=== PATIENT | female | born 1945 | race Caucasian/White ===

== ENCOUNTER 2017-04-15 14:18 | Outpatient (CLI) | payer MEDICARE, OTHER ==
[2015-07-15 20:10] VITALS: BP 190/90
[2017-04-15 15:45] LABS: eGFR (African) > 60; eGFR (Non-African) > 60
== END 2017-04-15 14:20 ==
LOC: LAB 14:18
PROVIDERS: ATTEND Family Medicine
DX: I10 Essential (primary) hypertension (principal); R41.3 Other amnesia
CPT/HCPCS: 36415; 80053; 80061; 84443

== ENCOUNTER 2019-02-08 11:30 | Emergency (ER) | payer MEDICARE, OTHER ==
--- NOTE | 2019-02-08 11:34 | ED Physician Documentation ---
Lower Extremity Problem - HISTORIAN Historian: patient - HPI Stated Complaint: left foot swelling/pain Chief Complaint: Lower Extremity Problem Additional Information: Patient presents to ED with a 2 day history of left foot/ankle swelling with associated redness. Patient states that today the pain is so intense she is unable to bear weight. She has a heel spur on the same foot and sees Dr. Ordoñez. She has no other complaints. Location of Injury: L foot, L ankle Onset: days ago (2) Timing: still present, persistent since Duration: constant Where: home Severity: moderate Quality: pain, swelling, tenderness Exacerbated By: walking Relieved By: rest Associated Symptoms: denies: chest pain, shortness of breath - ROS CONST: denies: fever MS/SKIN/LYMPH: denies: leg swelling CVS/RESP: denies: chest pain, shortness of breath GI/: denies: vomiting, nausea NERUO/PSYCH: denies: headache - PAST HX Past History: none PE Risk Factors: hypertension Other History: CHF Surgeries/Procedures: none Allergies/Adverse Reactions: Allergies Allergy/AdvReac Type Severity Reaction Status Date / Time Cbnhgwa-Geh-Stk Reductase AdvReac Unknown Blister Verified 02/08/19 11:35 Inhibitor Home Medications: Ambulatory Orders Medication Instructions Recorded Omeprazole 40 mg PO BID 07/15/15 Amoxicillin/Potassium Clav 1 each PO BID #14 tablet 02/08/19 [Augmentin 875-125 Tablet] - SOCIAL HX Smoking History: non-smoker Alcohol Use: none Drug Use: none - FAMILY HX Family History: none - VITAL SIGNS Vital Signs: Vital Signs Temp Pulse Resp BP Pulse Ox 97.9 F 89 20 173/78 96 02/08/19 11:36 02/08/19 11:36 02/08/19 11:36 02/08/19 11:36 02/08/19 11:36 - REVIEWED ASSESSMENTS Nursing Assessment Reviewed: Yes Vitals Reviewed: Yes ED Results Lab/Radiology - Lab Results Lab Results: Lab Results 02/08/19 02/08/19 02/08/19 12:00 12:00 12:00 WBC 9.90 K/ul K/ul (4.00-12.00) RBC 4.40 M/ul M/ul (3.90-5.20) Hgb 12.8 g/dL g/dL (11.5-16.0) Hct 37.9 % % (34.5-46.5) MCV 86.0 fl fl (80.0-100.0) MCH 29.1 pg pg (28.0-34.0) MCHC 33.7 g/dL g/dL (30.0-36.0) RDW 14.1 % % (11.3-14.3) Plt Count 219 K/mm3 K/mm3 (130-400) Neut % (Auto) 72.4 % % (39.0-79.0) Lymph % (Auto) 16.1 % % (16.0-50.0) [place] % (Auto) 9.4 % % (0.0-11.0) Eos % (Auto) 1.6 % % (0.0-6.8) Baso % (Auto) 0.5 % % (0.0-1.5) Neut # (Auto) 7.2 # k/uL # k/uL (1.4-7.7) Lymph # (Auto) 1.6 # k/uL # k/uL (0.6-4.0) [place] # (Auto) 0.9 # k/uL # k/uL (0.0-0.9) Eos # (Auto) 0.2 # k/uL # k/uL (0.0-0.6) Baso # (Auto) 0.1 # k/uL # k/uL (0.0-0.5) Sodium 140 mmol/L mmol/L (137-145) Potassium 4.9 mmol/L mmol/L (3.5-5.1) Chloride 101 mmol/L mmol/L (98-107) Carbon Dioxide 26 mmol/L mmol/L (22-30) Anion Gap 17.9 BUN 23 mg/dL H mg/dL (7-17) Creatinine 0.72 mg/dL mg/dL (0.52-1.04) Estimated Creat Clear 113 Est GFR ( Amer) > 60 (60 - ) Est GFR (Non-Af Amer) > 60 (60 - ) Glucose 150 mg/dL H mg/dL (74-106) Uric Acid 5.0 mg/dL mg/dL (2.5-6.2) Calcium 9.4 mg/dL mg/dL (8.4-10.2) Total Bilirubin 1.1 mg/dL mg/dL (0.2-1.3) AST 46 U/L U/L (15-46) ALT 13 U/L U/L (13-69) Alkaline Phosphatase 90 U/L U/L (38-126) Total Protein 8.1 g/dL g/dL (6.3-8.2) Albumin 4.5 g/dL g/dL (3.5-5.0) - Radiology Radiology Impressions: Report Submission Date: Feb 08, 2019 12:10:09 PM CDT Patient Study Name: RACHAEL CRUZ Date: Feb 08, 2019 11:34:51 AM CDT Modality Type: DX Gender: F Description: ANKLE 3 VIEWS OR MORE : 41 Institution: [facility] Physician: SHAYY AGUILAR Exam: Left ankle. History: Pain. AP, lateral and mortise view of the left ankle are submitted. The examination is compared to a study of the calcaneus performed on January 20 2019. No signs of acute fracture or dislocation is identified. Ankle mortise is adequately maintained. Soft tissue swelling about the ankle is noted. Spurs off the plantar and posterior surfaces of the calcaneus are identified. Impression: Soft tissue swelling. Heel spurs. Electronically signed on Feb 08, 2019 12:10:09 PM CDT by: Juan C Diggs Report Submission Date: Feb 08, 2019 12:11:49 PM CDT Patient Study Name: RACHAEL CRUZ Date: Feb 08, 2019 11:34:51 AM CDT Modality Type: DX Gender: F Description: FOOT 3 VIEWS OR MORE : 41 Institution: [facility] Physician: SHAYY AGUILAR Exam: Left foot. History: Pain. AP, lateral and oblique view of the left foot are submitted and compared to a study of the calcaneus performed on January 20, 2019. 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 No signs of acute fracture or dislocation is seen. No bony erosions are seen. Spurs off the plantar and posterior surfaces of the calcaneus are noted. No other soft tissue abnormalities are identified. Impression: Heel spurs. Electronically signed on Feb 08, 2019 12:11:49 PM CDT by: Juan C Diggs - Orders Orders: ED Orders Category Date Time Status Place IV Lock 1T Care 02/08/19 11:41 Active ANKLE 3 VIEWS OR MORE [RAD] Stat Exams 02/08/19 Taken FOOT 3 VIEWS OR MORE [RAD] Stat Exams 02/08/19 Taken CBC/PLATELET/DIFF Routine Lab 02/08/19 12:00 Completed CMP Routine Lab 02/08/19 12:00 Completed URIC ACID Stat Lab 02/08/19 12:00 Completed methylPREDNISolone SOD SUCC [SOLU-Medrol] Med 02/08/19 12:26 Once 125 mg IVP NOW ONE Lower Extremity Problem - EXAM General Appearance: no distress Hips: bilateral hip: non-tender, normal inspection, normal range of motion, no evidence of injury Legs: bilateral: non-tender, normal inspection, normal range of motion, no evidence of injury Knees: bilateral: non-tender, normal inspection, normal range of motion, no evidence of injury Ankle: left: pain (lateral maleoli), soft tissue tenderness (lateral maleoli), swelling (lateral maleoli), other (redness lateral maleoli) Foot: right foot: non-tender, normal inspection, normal range of motion, no evidence of injury, left foot: pain (lateral foot), soft tissue tenderness (lateral foot), swelling (lateral foot), other (lateral foot redness) Neuro/Tendon: normal sensation, normal motor functions, responds to pain, no evidence tendon injury EENT: ENT inspection normal, HELIO RESPIRATORY: no resp distress, chest non-tender, breath sounds normal CVS: reg rate & rhythm, heart sounds normal, equal pulses JOINT: joints nml, nml ROM, unable to bear weight (left foot) VASCULAR: no vascular compromise, pulses full/equal NEURO/PSYCH: oriented X3, CN's nml as tested, motor nml, mood/affect nml SKIN: warm/dry, normal color BACK: normal inspection, no CVA tenderness Discharge Clincal Impression: Cellulitis of left ankle Prescriptions: Amoxicillin/Potassium Clav [Augmentin 875-125 Tablet] 1 each PO BID #14 tablet Referrals: Pat Lennon MD [Primary Care Provider] - 2 Days Additional Instructions: 1. Take antibiotics until gone. Rx sent to [facility] 2. Keep foot elevated as much as possible to reduce swelling 3. Tylenol as needed for pain 4. Continue home medications as previously prescribed 5. Follow up with Dr. Lennon within 1 week 6. Follow up with Dr. Ordoñez as already scheduled 7. Return to ER for new or worsening symptoms Condition: Stable Disposition: 01 HOME, SELF-CARE Decision to Admit: NO Date of Decison to Admit: 02/08/19 Decision Time: 12:34
[2019-02-08 11:43] VITALS: BP 173/78
[2019-02-08 12:13] LABS: BASOPHILS % 0.5 % (0.0-1.5); NEUTROPHILS # 7.2 # k/uL (1.4-7.7)
[2019-02-08 12:24] LABS: eGFR (Non-African) > 60
[2019-02-08] MEDS ORDERED: methylPREDNISolone SOD SUCC 125 MG/2 ML VIAL IVP ONE (12:26)
--- NOTE | 2019-02-08 14:11 | Diagnostic Imaging Report ---
SHAYY AGUILAR [facility] [address] [id number] Report Submission Date: Feb 08, 2019 12:10:09 PM CDT Patient Study Name: RACHAEL CRUZ Date: Feb 08, 2019 11:34:51 AM CDT Modality Type: DX Gender: F Description: ANKLE 3 VIEWS OR MORE : 41 Institution: [facility] Physician: SHAYY AGUILAR Exam: Left ankle. History: Pain. AP, lateral and mortise view of the left ankle are submitted. The examination is compared to a study of the calcaneus performed on January 20 2019. No signs of acute fracture or dislocation is identified. Ankle mortise is adequately maintained. Soft tissue swelling about the ankle is noted. Spurs off the plantar and posterior surfaces of the calcaneus are identified. Impression: Soft tissue swelling. Heel spurs. Electronically signed on Feb 08, 2019 12:10:09 PM CDT by: Juan C TAVERA
--- NOTE | 2019-02-08 14:11 | Diagnostic Imaging Report ---
SHAYY AGUILAR [facility] [address] [id number] Report Submission Date: Feb 08, 2019 12:11:49 PM CDT Patient Study Name: RACHAEL CRUZ Date: Feb 08, 2019 11:34:51 AM CDT Modality Type: DX Gender: F Description: FOOT 3 VIEWS OR MORE : 41 Institution: [facility] Physician: SHAYY AGUILAR Exam: Left foot. History: Pain. AP, lateral and oblique view of the left foot are submitted and compared to a study of the calcaneus performed on January 20, 2019. 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 No signs of acute fracture or dislocation is seen. No bony erosions are seen. Spurs off the plantar and posterior surfaces of the calcaneus are noted. No other soft tissue abnormalities are identified. Impression: Heel spurs. Electronically signed on Feb 08, 2019 12:11:49 PM CDT by: Juan C TAVERA
== END 2019-02-08 12:46 | disposition home or self-care (01) ==
LOC: ED 11:30
DX: L03.116 Cellulitis of left lower limb (principal)
CPT/HCPCS: 73610; 73630; 80053; 84550; 85025; 96372; 99283; 99284; J2930; S1016